=== PATIENT | female | born 1990 | race Caucasian/White ===

== ENCOUNTER 2022-04-25 14:09 | Inpatient (IN) | payer OTHER ==
[~2022-04-25] VITALS: Ht 162.6 cm; Wt 50.3 kg
[~2022-04-25 14:09] MED LIST: ALPR0.5T8 MT; HYDR4TAB57 PO; OXYC1TAB8 MT; PANT40TA2 PO; SERT50TA12 PO
[2022-04-25] MEDS ORDERED: HYDROMORPHONE 1 MG/1 ML DISP.SYRIN IV ONE ×2 (15:00→23:30)
[2022-04-25] MEDS ORDERED: IV NS 0.9% 1,000 ML IV ONE (15:00)
[2022-04-25] MEDS ORDERED: LEVETIRACETAM (250 MG) 250 MG TABLET PO ONE ×2 (15:00→15:28)
[2022-04-25] MEDS ORDERED: ONDANSETRON HCL/PF 4 MG/2 ML VIAL IV ONE (15:00)
[2022-04-25] MEDS ORDERED: ONDANSETRON HCL/PF 4 MG/2 ML VIAL ONE (15:01)
[2022-04-25] MEDS ORDERED: HYDROMORPHONE 1 MG/1 ML DISP.SYRIN ONE ×2 (15:01→23:30)
[2022-04-25 15:22] LABS: BASOPHILS # (AUTO) 0.1 K/uL (0.0-0.2); BASOPHILS % (AUTO) 0.9 % (0.0-2.0); EOSINOPHILS % (AUTO) 1.6 % (0.0-6.0); HEMATOCRIT 30 % (33-45); LYMPHOCYTES # (AUTO) 0.5 K/uL (0.8-4.8); LYMPHOCYTES % (AUTO) 8.7 % (20.0-44.0); MEAN CORPUSCULAR HGB CONC 33 g/dl (31.0-36.0); MEAN CORPUSCULAR VOLUME 85 fL (82-100); MONOCYTES # (AUTO) 0.5 K/uL (0.1-1.30); MONOCYTES % (AUTO) 8.3 % (2.0-12.0); NEUTROPHILS # (AUTO) 5.1 K/uL (1.8-8.9); NEUTROPHILS % (AUTO) 80.5 % (43.0-81.0); PLATELET COUNT (AUTO) 313 K/uL (150-450); RED BLOOD CELL COUNT(AUTO) 3.56 MIL/uL (4.0-5.2); WHITE BLOOD COUNT (AUTO) 6.3 K/uL (4.3-11.0)
--- NOTE | 2022-04-25 15:30 | NUR ---
Right external jugular G20 inserted by fire engineer [employer]
[2022-04-25 15:31] LABS: CALCIUM, SERUM 8.4 mg/dL (8.5-10.1)
[2022-04-25] MEDS ORDERED: diphenhydrAMINE HCL 50 MG/ML VIAL ONE ×3 (15:32→23:30)
[2022-04-25 15:37] LABS: ALBUMIN 3.5 g/dL (3.4-5.0); BILIRUBIN,DIRECT 0.1 mg/dL (0.0-0.2); BILIRUBIN,TOTAL 0.3 mg/dL (0.2-1.0); TOTAL PROTEIN, SERUM 7.1 g/dL (6.4-8.2)
[2022-04-25] MEDS ORDERED: diphenhydrAMINE HCL 50 MG/ML VIAL IV ONE ×3 (16:00→23:30)
--- NOTE | 2022-04-25 16:06 | NUR ---
patient is going to [facility]. CM will call back for transfer info.
[2022-04-25] MEDS ORDERED: OXYC-133 PO (16:08)
[2022-04-25] MEDS ORDERED: HYDR4TAB4 PO (16:08)
[2022-04-25] MEDS ORDERED: LEVE500T9 PO (16:10)
[2022-04-25] MEDS ORDERED: ALPR2TAB7 PO (16:10)
[2022-04-25] MEDS ORDERED: ONDA4TAB5 PO (16:10)
[2022-04-25] MEDS ORDERED: OMEP40CA21 PO (16:10)
--- NOTE | 2022-04-25 16:30 | NUR ---
On isolation precations. Covid positive
--- NOTE | 2022-04-25 17:32 | NUR ---
Dozing on/off. VSS Status quo
[2022-04-25] MEDS ORDERED: HYDROMORPHONE INJ 2 MG/ML DISP.SYRIN ONE (19:51)
[2022-04-25] MEDS ORDERED: HYDROMORPHONE INJ 2 MG/ML DISP.SYRIN IV ONE (20:00)
--- NOTE | 2022-04-25 20:13 | NUR ---
PT BROUGHT IN C/O ABD PAIN SINCE LAST EVENING THAT HAS PROGRESSIVELY WORSTENED. HX OF COLON CANCER TAKING PRN DILUADID BUR RAN OUT. PT AWAKE AND ALERT X4 BREATHING EVEN AND UNLABORED. PT ON MONITOR AND V/S WNL.
--- NOTE | 2022-04-25 20:19 | NUR ---
WHEN RESULTED FAX COVID RESULT AND DOC NOTE TO [phone]
[2022-04-25 21:38] LABS: BILIRUBIN,URINE NEGATIVE (NEGATIVE); COLOR,URINE YELLOW (YELLOW); LEUKOCYTE ESTERASE ,URINE NEGATIVE (NEGATIVE); NITRITE, URINE NEGATIVE (NEGATIVE); PROTEIN,URINE NEGATIVE (NEGATIVE); UGLUCOSE NEGATIVE (NEGATIVE); UROBILINOGEN,URINE 0.2 EU/dL (0.2)
[2022-04-25 22:24] LABS: BACTERIA,URINE 2+ /HPF (None Seen); COARSE GRANULAR CASTS,URINE Few /LPF (None Seen); MUCUS,URINE Few /LPF (None Seen); RBC,URINE 21-50 /HPF (0-2); WBC,URINE 0-2 /HPF (0-3)
[2022-04-26] VITALS (7 sets, daily range): BP systolic 98–119; BP diastolic 60–88
--- NOTE | 2022-04-26 01:06 | NUR ---
PT SLEEPING COMOFRTABLY ALL V/S WNL. CALL LIGHT WITHIN REACH ABLE TO COMMUNICATE ALL NEEDS.
--- NOTE | 2022-04-26 02:16 | NUR ---
RECIEVED ROOM 106
--- NOTE | 2022-04-26 02:43 | NUR ---
REPORT GIVEN TO MARSHAL
--- NOTE | 2022-04-26 03:08 | NUR ---
PT TRANSPORTED TO ROOM [address] [facility] IN STABLE CONDITION
[2022-04-26] MEDS ORDERED: ZOLPIDEM TARTRATE 5 MG TABLET PO PRN (03:30)
[2022-04-26] MEDS ORDERED: ONDANSETRON HCL/PF 4 MG/2 ML VIAL IV PRN (03:30)
[2022-04-26] MEDS: IV D5/ 0.9% NACL 1,000 ML IV PRN ×2 (03:46→15:39)
[2022-04-26] MEDS: HYDROMORPHONE 1 MG/1 ML DISP.SYRIN IV PRN ×6 (03:46→21:56)
--- NOTE | 2022-04-26 04:35 | NUR ---
Patient received from ER about 03:15 crying loudly requesting pain medication, and if I can't get her something she wants to see the Charge Nurse.. I let her know how thw system works here at [facility] and I will start on her orders right away and call the pharmacy to have them verified Dilaudid given IVP slowly and she stated to follow with a flush D/T dilaudid ramirez at the site. Dilaudid was given through a port of the on going infusing IV. I V flushed slowly as pt asked. Requisting Benadry to follow, explained to no order was written . MD Amaya will be asked in the AM if he wants this to be given. She has a colostomy with brown stool soft no vomiting at this time Dilaudid was effective for ABD PAIN.
[2022-04-26 07:01] LABS: CALCIUM, SERUM 7.6 mg/dL (8.5-10.1); MAGNESIUM 1.6 mg/dL (1.8-2.4); POTASSIUM 3.5 mmol/L (3.5-5.1)
[2022-04-26 07:09] LABS: BASOPHILS % (AUTO) 0.7 % (0.0-2.0); EOSINOPHILS % (AUTO) 0.5 % (0.0-6.0); HEMATOCRIT 30 % (33-45); HEMOGLOBIN 9.9 g/dL (11.5-14.8); LYMPHOCYTES # (AUTO) 1.2 K/uL (0.8-4.8); LYMPHOCYTES % (AUTO) 20.5 % (20.0-44.0); MEAN CORPUSCULAR HGB CONC 33 g/dl (31.0-36.0); MEAN CORPUSCULAR VOLUME 85 fL (82-100); MONOCYTES # (AUTO) 0.7 K/uL (0.1-1.30); MONOCYTES % (AUTO) 12.5 % (2.0-12.0); NEUTROPHILS # (AUTO) 3.8 K/uL (1.8-8.9); NEUTROPHILS % (AUTO) 65.8 % (43.0-81.0); PLATELET COUNT (AUTO) 279 K/uL (150-450); RED BLOOD CELL COUNT(AUTO) 3.55 MIL/uL (4.0-5.2); WHITE BLOOD COUNT (AUTO) 5.8 K/uL (4.3-11.0)
--- NOTE | 2022-04-26 07:31 | NUR ---
RN che solomon . Patient is at bed ,alert , oriented times 3 , ambulatory , urine and bowel continent on room air breathing unlabored, c/o of the abdominal pain 10/10 , Dilaudid given IVP slowly through a port of the on going infusing IV at 100 ml /hr. Patient has Hx of the CA of the colon, has colostomy.Patient is able to empty colostomy bag independently.Upon morning assessment patient had temp 101, HR 96 , resp 20 , BP 103/62, O2 saturation 96. Dr Puente was informed via text message , respond is pending. Bed is at lowet position , Call light within reach .
[2022-04-26] MEDS ORDERED: ACETAMINOPHEN 325 MG TABLET PO PRN (08:00)
[2022-04-26] MEDS: CEFTRIAXONE 2 G in IV D5W 100 ML IV SCH ×3 (09:31→11:11)
[2022-04-26] MEDS: Magnesium 1GM/D5W 100ML PREMIX 100 ML IV SCH ×2 (09:32→09:56)
[2022-04-26] MEDS: diphenhydrAMINE HCL 25 MG CAPSULE PO PRN ×2 (10:25→21:55)
[2022-04-26] MEDS: diphenhydrAMINE HCL 50 MG/ML VIAL IV PRN (18:10)
--- NOTE | 2022-04-26 18:15 | NUR ---
RN closing note Patient is alert , oriented times 4 , in bed , ambulatory, skin is intact , patient has colostomy and independent to change the bag, patient has IV acsess of the [place] vein , on Ds 5% NS 100 ml/hr , patient c/o continues abdomen pain that reliefed by Diladin and [place] , last dose of Dilaudid 1 mg/1ml was administered at 1534. Patient is back on regular diet, all medications were administered , all med were met . Bed is at lowest position ,call light within reach .
--- NOTE | 2022-04-26 19:30 | NUR ---
MS RN NOTES PATIENT A&O X 4. AWAKE IN BED , NO SOB OR SIGNS OF DISTRESS NOTED, PATIENT MEDICATED FOR PAIN EARLIER BY DAY SHIT NURSE, PAIN SUBSIDED TO 2/, IV D5NS RUNNING @100ML/HR INTO EXTERNAL RIGHT JUGULAR, NO S/S OF INFILTRATION NOTED, VSS, SIDE RAILS UP, CALL LIGHT WITHIN REACH , CONTINUE TO MONITOR
[2022-04-26] MEDS: METRONIDAZOLE 500 MG TABLET PO SCH (20:45)
--- NOTE | 2022-04-26 21:55 | NUR ---
MS RN NOTE PAIN MEDICATION GIVEN FOR RATED 810
[2022-04-27] VITALS (7 sets, daily range): BP systolic 96–125; BP diastolic 55–75
--- NOTE | 2022-04-27 01:00 | NUR ---
MS RN NOTE MEDICATION GIVEN FOR PAIN 05/29, AND BENADRYL
[2022-04-27] MEDS: diphenhydrAMINE HCL 50 MG/ML VIAL IV PRN ×4 (01:04→20:24)
[2022-04-27] MEDS: HYDROMORPHONE 1 MG/1 ML DISP.SYRIN IV PRN ×8 (01:04→23:50)
--- NOTE | 2022-04-27 04:22 | NUR ---
MS RN NOTE PATIENT HAD PAIN 05/29, GAVE PRN PAIN MEDICATION
[2022-04-27] MEDS: METRONIDAZOLE 500 MG TABLET PO SCH ×3 (04:33→20:24)
--- NOTE | 2022-04-27 06:41 | NUR ---
MS RN NOTE PATIENT IN BED SLEEPING, PAIN MEDS GIVEN THROUGH OUT SHIFT, PATIENT COMPLAINED OF LEFT KIDNEY PAIN AND PRESSURE WHILE URINATING, WILL ENDORSE TO DAY SHIFT NURSE TO FOLLOW UP, SIDE RAILS UP X2, CALL LIGHT WITHIN REACH
--- NOTE | 2022-04-27 07:25 | NUR ---
RN open note Patient is alert , oriented times 4, on room air , breathing un labored , no sighs for distress, patient has colostomy bag , changing and empting it independently. Iv acsess of the R Jugular,vein D5% Ns 100 ml/hr . Bed is at lowest position , bed side rails are up , call light within reach .
[2022-04-27 09:38] LABS: BASOPHILS % (AUTO) 0.7 % (0.0-2.0); HEMATOCRIT 29 % (33-45); HEMOGLOBIN 9.6 g/dL (11.5-14.8); LYMPHOCYTES # (AUTO) 1.3 K/uL (0.8-4.8); LYMPHOCYTES % (AUTO) 26.7 % (20.0-44.0); MEAN CORPUSCULAR HGB CONC 33 g/dl (31.0-36.0); MEAN CORPUSCULAR VOLUME 86 fL (82-100); MONOCYTES # (AUTO) 0.7 K/uL (0.1-1.30); MONOCYTES % (AUTO) 13.3 % (2.0-12.0); NEUTROPHILS # (AUTO) 2.8 K/uL (1.8-8.9); NEUTROPHILS % (AUTO) 56.3 % (43.0-81.0); PLATELET COUNT (AUTO) 254 K/uL (150-450); RED BLOOD CELL COUNT(AUTO) 3.43 MIL/uL (4.0-5.2); WHITE BLOOD COUNT (AUTO) 4.9 K/uL (4.3-11.0)
[2022-04-27 09:51] LABS: ALBUMIN 2.7 g/dL (3.4-5.0); BILIRUBIN,TOTAL 0.1 mg/dL (0.2-1.0); CALCIUM, SERUM 7.7 mg/dL (8.5-10.1); CREATININE 0.9 mg/dL (0.6-1.3); POTASSIUM 3.6 mmol/L (3.5-5.1); TOTAL PROTEIN, SERUM 6.1 g/dL (6.4-8.2)
[2022-04-27 10:22] LABS: THYROID STIMULATING HORMONE 2.873 uIU/mL (0.358-3.74)
[2022-04-27] MEDS: IV D5/ 0.9% NACL 1,000 ML IV PRN (18:00)
--- NOTE | 2022-04-27 18:17 | NUR ---
RN closing note Patient is alert , oriented times3 , at room air , breathing non labor , O 2 sat 97%, has mid line started on the SAMIRA , 5% Ns running at 100 ml/hr . Patient complained of the abdominal pain and PRN pain medications were administered every 3 hr ,last dose of the Dilaudid 1 mg was administered IV at 1715. Patient had colostomy and able to independently empty the bag and change it . All medications were administered all needs are met . Bed isat lowest position, bed side rails are up , call light within reach.
--- NOTE | 2022-04-27 19:30 | NUR ---
RN NOTE RECEIVED PATIENT IN BED, AWAKE, ALERT, AND VERBALLY RESPONSIVE. BREATHING EVEN AND UNLABORED. ON ROOM AIR. DENIES SOB. NO COUGH/CONGESTION NOTED AT THIS TIME. DENIES CHEST PAIN. SKIN WARM AND DRY TO TOUCH. RIGHT UPPER ARM MIDLINE, INFUSING D5 NS AT 100 CC/HR. DRESSING INTACT. PATIENT NOTED WITH RIGHT LOWER ABDOMEN COLOSTOMY. INTACT. NOTED WITH BROWN, LIQUID STOOL. SEMISOLID. PATIENT STATES SHE CAN AMBULATE TO THE RESTROOM. DENIES FEELINGS OF DIZZINESS. PATIENT IS COMPLAINING OF GENERALIZED ABDOMINAL PAIN. ASSISTED WITH REPOSITIONING WITH NO RELIEF. BED LOW, IN LOCKED POSITION. WILL CONTINUE TO MONITOR.
--- NOTE | 2022-04-28 00:30 | NUR ---
RN NOTE PATIENT HAS BEEN REQUESTING FOR DILAUDID PAIN MEDICATION FOR HER GENERALIZED ABDOMINAL PAIN. PRN ORDER ADMINISTERED. PATIENT SLEEPING AT THIS TIME. EASILY AROUSABLE. CALL LIGHT WITHIN REACH.
[2022-04-28] MEDS: IV D5/ 0.9% NACL 1,000 ML IV PRN (02:56)
[2022-04-28] MEDS: HYDROMORPHONE 1 MG/1 ML DISP.SYRIN IV PRN ×3 (02:56→10:32)
[2022-04-28] MEDS: diphenhydrAMINE HCL 50 MG/ML VIAL IV PRN ×3 (03:08→15:25)
--- NOTE | 2022-04-28 03:33 | NUR ---
RN NOTE Colostomy bag changed per patient request. Old colostomy with brown semiliquid stool.
[2022-04-28 04:00] VITALS: BP 99/72
[2022-04-28] MEDS: METRONIDAZOLE 500 MG TABLET PO SCH ×2 (04:51→12:22)
--- NOTE | 2022-04-28 07:30 | NUR ---
RN OPENING NOTE MEDSURG PATIENT IN BED.PATIENT IS AWAKE, ALERT AND ORIENTED X4. ABLE TO MAKE NEEDS KNOWN. PATIENT IS ON ROOM AIR. SKIN WARM AND DRY. RIGHT UPPER ARM MIDLINE IS PATENT AND FLUSHING WELL. PATIENT HAS COLOSTOMY BAG INTACT. PATIENT IS AMBULATORY TO THE RESTOOM. PATIENT IS COMPLAINING OF PAIN. DILAUDID IS NOT DUE YET. RECOMMENDED REPOSITIONING. NO RELIEF OF PAIN. WILL ADMINISTER PAIN MEDS WHEN IS DUE.ALL SAFETY MEASURES IN PLACE. BED LOCKED IN LOWEST POSITION, BEDSIDE TABLE WITHIN REACH. CALL LIGHT WITHIN REACH. SIDE RAILS UP X2.
[2022-04-28 08:00] VITALS: BP 104/58
[2022-04-28] MEDS: CEFTRIAXONE 2 G in IV D5W 100 ML IV SCH (09:27)
[2022-04-28] MEDS ORDERED: LEVO250T59 PO (11:14)
--- NOTE | 2022-04-28 11:53 | NUR ---
PENDING DISCHARGE BECAUSE OF CONCERNS OF GOING HOME WITH COVID.PATIENT LIVES WITH ELDERLY PATIENTS. SCHOOL LIBRARY MEDIA PROGRAM DIRECTOR NOTIFIED. WILL FOLLOW-UP
--- NOTE | 2022-04-28 11:57 | NUR ---
dr. helton aware pending dc r/t covid per pt. lives with elderly concern of going back,regal cm made aware.pain meds reviewed by dr. helton change to po norco and discontinue iv dilaudid.
[2022-04-28] MEDS: HYDROCODONE/APAP 5/325MG TABLET PO PRN ×2 (14:04→14:05)
--- NOTE | 2022-04-28 15:14 | NUR ---
patient refuses to leave unless she have her iv benadryl,explained can give po but verbalized that the po doesnt work on her.
--- NOTE | 2022-04-28 15:56 | NUR ---
per patient father picking her up around 1630,midline removed.discharge instruction and prescription given by primary nurse to pt.
--- NOTE | 2022-04-28 16:52 | NUR ---
FARM OWNER OPERATOR NOTE PATIENT DISCHARGED. PATIENT IS ALERT AND ORIENTED X4. PATIENT IS STABLE AND AMBULATORY. REMOVED MIDLINE. DISCHARGED BY WHEELCHAIR TO MAIN LOBBY PICKED UP BY FATHER
== END 2022-04-28 17:22 | disposition home or self-care (01) | DRG 137 ==
LOC: ER 14:27 → MEDSG1 04-26 02:19
PROVIDERS: ADMIT Internal Medicine; ATTEND Internal Medicine
PROC: 05HD33Z Insertion of Infusion Device into Right Cephalic Vein, Percutaneous Approach (ICD-10-PCS; principal; 2022-04-27)
DX: U07.1 COVID-19 (principal); N13.6 Pyonephrosis; K76.0 Fatty (change of) liver, not elsewhere classified; G40.909 Epilepsy, unspecified, not intractable, without status epilepticus; R10.9 Unspecified abdominal pain; Z85.038 Personal history of other malignant neoplasm of large intestine; Z90.49 Acquired absence of other specified parts of digestive tract; Z93.2 Ileostomy status; Z93.3 Colostomy status; Z90.411 Acquired partial absence of pancreas; Z28.310 Unvaccinated for COVID-19; K86.1 Other chronic pancreatitis; Z88.8 Allergy status to other drugs, medicaments and biological substances; Z79.899 Other long term (current) drug therapy; N39.0 Urinary tract infection, site not specified; B96.89 Other specified bacterial agents as the cause of diseases classified elsewhere; G89.29 Other chronic pain; K52.9 Noninfective gastroenteritis and colitis, unspecified; Z98.890 Other specified postprocedural states; K92.89 Other specified diseases of the digestive system; Z28.9 Immunization not carried out for unspecified reason
CPT/HCPCS: 36415; 71045-TC; 80048-TC; 80053-TC; 80076-TC; 81001; 83540-TC; 83605-TC; 83690-TC; 83735-TC; 84443-TC; 84703-TC; 85025-TC; 86140-TC; 87040-TC; 87081-TC; 87086-TC; C9803; G0378; J0696; J1170; J1200; J2405; J3475; J3490; J7042; J7050; J7060; Q0163

== ENCOUNTER 2022-10-05 11:13 | Emergency (ER) | payer OTHER ==
[~2022-10-05] VITALS: Ht 162.6 cm; Wt 68.0 kg
[~2022-10-05 11:13] MED LIST changes: +ALPR2TAB7 PO; +HYDR4TAB4 PO; +LEVE500T9 PO; +LEVO250T59 PO; +OMEP40CA21 PO; +ONDA4TAB5 PO; +OXYC-133 PO
--- NOTE | 2022-10-05 11:39 | NUR ---
DR WILL AT BEDSIDE FOR EVAL.
[2022-10-05] MEDS ORDERED: IV NS 0.9% 1,000 ML BAG IV ONE (12:00)
[2022-10-05] MEDS ORDERED: ONDANSETRON HCL/PF - ER 4 MG/2 ML VIAL IV ONE (12:00)
[2022-10-05] MEDS ORDERED: HYDROMORPHONE INJ 2 MG/ML DISP.SYRIN IV ONE (12:00)
[2022-10-05] MEDS ORDERED: HYDROMORPHONE 1 MG/1 ML DISP.SYRIN ONE ×3 (12:01→15:15)
[2022-10-05] MEDS ORDERED: ONDANSETRON HCL/PF 4 MG/2 ML VIAL ONE (12:01)
--- NOTE | 2022-10-05 12:09 | NUR ---
established iv line right ac 21g
[2022-10-05] MEDS ORDERED: diphenhydrAMINE HCL 25 MG CAPSULE ONE (12:12)
[2022-10-05] MEDS ORDERED: DIPHENHYDRAMINE HCL 12.5 MG/5 ML UDC PO ONE (12:30)
[2022-10-05 12:39] LABS: CALCIUM, SERUM 8.2 mg/dL (8.5-10.1); CREATININE 0.9 mg/dL (0.6-1.3); POTASSIUM 3.3 mmol/L (3.5-5.1)
[2022-10-05 12:40] LABS: BASOPHILS % (AUTO) 0.7 % (0.0-2.0); HEMATOCRIT 26 % (33-45); HEMOGLOBIN 7.4 g/dL (11.5-14.8); LYMPHOCYTES # (AUTO) 1.4 K/uL (0.8-4.8); LYMPHOCYTES % (AUTO) 30.4 % (20.0-44.0); MEAN CORPUSCULAR HGB CONC 29 g/dl (31.0-36.0); MEAN CORPUSCULAR VOLUME 69 fL (82-100); MONOCYTES # (AUTO) 0.2 K/uL (0.1-1.30); MONOCYTES % (AUTO) 4.2 % (2.0-12.0); NEUTROPHILS # (AUTO) 2.8 K/uL (1.8-8.9); NEUTROPHILS % (AUTO) 63.7 % (43.0-81.0); PLATELET COUNT (AUTO) 312 K/uL (150-450); RED BLOOD CELL COUNT(AUTO) 3.68 MIL/uL (4.0-5.2); WHITE BLOOD COUNT (AUTO) 4.4 K/uL (4.3-11.0)
[2022-10-05 12:45] LABS: ALBUMIN 3.2 g/dL (3.4-5.0); BILIRUBIN,DIRECT 0.2 mg/dL (0.0-0.2); BILIRUBIN,TOTAL 0.4 mg/dL (0.2-1.0); TOTAL PROTEIN, SERUM 7.4 g/dL (6.4-8.2)
[2022-10-05] MEDS ORDERED: HYDROMORPHONE 1 MG/1 ML DISP.SYRIN IV ONE ×2 (13:00→15:30)
--- NOTE | 2022-10-05 13:11 | NUR ---
addendum iv ns 1000 liter start time 1210 end time 1310
[2022-10-05 13:56] LABS: BILIRUBIN,URINE NEGATIVE (NEGATIVE); LEUKOCYTE ESTERASE ,URINE NEGATIVE (NEGATIVE); NITRITE, URINE NEGATIVE (NEGATIVE); PROTEIN,URINE NEGATIVE (NEGATIVE); UGLUCOSE NEGATIVE (NEGATIVE); UROBILINOGEN,URINE 0.2 EU/dL (0.2)
[2022-10-05 13:59] LABS: COLOR,URINE LIGHT YELLOW (YELLOW)
[2022-10-05] MEDS ORDERED: POTASSIUM CHLORIDE 20 MEQ TAB.PRT.SR PO ONE ×2 (15:00→15:16)
[2022-10-05 15:02] VITALS: BP 130/81
[2022-10-05] MEDS ORDERED: METHOCARBAMOL (500MG) 500 MG TABLET ONE (15:15)
--- NOTE | 2022-10-05 15:28 | NUR ---
RAPID COVID SWAB DONE AND SENT TO LAB
[2022-10-05] MEDS ORDERED: METHOCARBAMOL (750MG) 750 MG TABLET PO SCH (15:30)
--- NOTE | 2022-10-05 15:46 | NUR ---
Patient does not wish to proceed with medical care recommended by Dr. Kandace Loco. Patient given information related to possible complications, up to and including , which could occur as a result of leaving the hospital at this time. Patient verbalizes understanding of risks involved due to leaving against medical advice. Patient has signed AMA form.
--- NOTE | 2022-10-05 15:48 | NUR ---
IV removed. Catheter intact and site benign. Pressure and 4x4 applied to site. No bleeding noted.
== END 2022-10-05 15:50 | disposition left against medical advice (07) ==
LOC: ER 11:17
DX: R10.84 Generalized abdominal pain (principal); Z85.038 Personal history of other malignant neoplasm of large intestine; Z88.8 Allergy status to other drugs, medicaments and biological substances; Z79.899 Other long term (current) drug therapy
CPT/HCPCS: 99284; 74176; 96374; 96361; 96375; 96376; 85025; 80048; 87040 ×2; 87086; 83605; 83690; 80076; 84703; 81003; 36415; Q0163 ×2; J2405; J7030; J1170 ×3